=== PATIENT | female | born 1930 | race Caucasian/White ===

== ENCOUNTER 2017-02-09 15:02 | Inpatient (IN) | payer OTHER ==
[~2017-02-09] VITALS: Ht 144.8 cm; Wt 40.8 kg
[2017-02-09 15:02] VITALS: BP_SYST 142
[~2017-02-09 15:02] MED LIST: ALBMDI INH; BUSP5TAB3 PO; CA C-2 PO; DOCU-144 PO; FLUT1DIS3 INH; FOLI400T4 PO; GABA-529 PO; HYDR-3111 PO; LACT10SO66 PO; LEVO500T20 PO; LORA1TAB PO; MIRT45TA5 PO; OMEP20CA10 PO; PRED10TA PO; PRIM50TA31 PO; SENN-153 PO
[2017-02-09] MEDS ORDERED: ASPIRIN 81 MG TAB.CHEW PO ONE (15:30)
[2017-02-09 15:34] LABS: BASOPHILS # (AUTO) 0.5 K/uL (0.0-0.2); BASOPHILS % (AUTO) 3.5 % (0.0-2.0); EOSINOPHILS # (AUTO) 0.1 K/uL (0.0-0.4); EOSINOPHILS % (AUTO) 0.7 % (0.0-4.0); HEMATOCRIT 35.6 % (36-48); HEMOGLOBIN 11.7 g/dL (12.0-16.0); LYMPHOCYTES # (AUTO) 4.6 K/uL (1.0-5.5); LYMPHOCYTES % (AUTO) 34.5 % (20.5-51.5); MEAN CORPUSCULAR HEMOGLOBIN 31 pg (27-31); MEAN CORPUSCULAR HGB CONC 33 % (32-36); MEAN CORPUSCULAR VOLUME 94 fL (79.0-98.0); MONOCYTES # (AUTO) 1.2 K/uL (0.0-1.0); MONOCYTES % (AUTO) 9.4 % (1.7-9.3); NEUTROPHILS # (AUTO) 6.8 K/uL (1.8-7.7); NEUTROPHILS % (AUTO) 51.9 % (40.0-70.0); PLATELET COUNT (AUTO) 309 K/uL (130-430); RED CELL DISTRIBUTION WIDTH 13.3 % (9.0-15.0); WHITE BLOOD COUNT (AUTO) 13.2 K/uL (4.8-10.8)
[2017-02-09 15:56] LABS: CREATININE 0.74 mg/dL (0.55-1.30)
[2017-02-09 16:05] LABS: ANION GAP 4 (5-15); CHLORIDE 104 mmol/L (98-107); GLUCOSE 116 mg/dL (70-99); POTASSIUM 4.5 mmol/L (3.5-5.1); SODIUM SERUM 135 mmol/L (136-145); UREA NITROGEN, BLOOD 21 mg/dL (8-21)
[2017-02-09 16:12] LABS: TOTAL BILIRUBIN 0.3 mg/dL (0.0-1.0)
[2017-02-09 16:13] LABS: ASPARTATE AMINOTRANSFERASE 13 U/L (10-37); TOTAL PROTEIN, SERUM 6.4 g/dL (6.4-8.3)
[2017-02-09 16:24] LABS: ALANINE AMINOTRANSFERASE 6 U/L (12-78)
[2017-02-09] MEDS ORDERED: ALBUTEROL SULFATE 0.083% 2.5 MG/3 ML VIAL.NEB INH PRN (18:00)
[2017-02-09 18:22] VITALS: BP_SYST 129
[2017-02-09 19:45] VITALS: BP_SYST 126
[2017-02-09] MEDS ORDERED: LACTULOSE 20 GM/30 ML UDC PO PRN (21:30)
[2017-02-09] MEDS ORDERED: FLUTICASONE 250 mCg/SALMETEROL 50 mCg DISKUS W.DEV INH SCH (21:30)
[2017-02-09] MEDS ORDERED: ALBUTEROL MDI INHALATION 8 GM INH INH SCH (21:30)
[2017-02-09] MEDS: LORazepam 1 MG TABLET PO PRN (22:15)
[2017-02-09] MEDS: HYDROcodone/ACETAMIN 7.5-325 MG TAB PO PRN (22:15)
[2017-02-10] VITALS (8 sets, daily range): BP systolic 97–126
[2017-02-10] MEDS: LORazepam 1 MG TABLET PO PRN ×2 (08:23→15:15)
[2017-02-10] MEDS: HYDROcodone/ACETAMIN 7.5-325 MG TAB PO PRN (08:32)
[2017-02-10] MEDS ORDERED: busPIRone HCL 5 MG TABLET PO SCH (09:00)
[2017-02-10] MEDS ORDERED: SENNOSIDES 8.6 MG TABLET PO SCH (09:00)
[2017-02-10] MEDS ORDERED: ASPIRIN 81 MG TAB.CHEW PO SCH (09:00)
[2017-02-10] MEDS ORDERED: DOCUSATE SODIUM 100 MG CAPSULE PO SCH (09:00)
[2017-02-10] MEDS ORDERED: OMEPRAZOLE 20 MG CAPSULE.DR (PriLOSEC) PO SCH (09:00)
[2017-02-10] MEDS ORDERED: PREDNISONE 10 MG TABLET PO SCH (09:00)
[2017-02-10] MEDS ORDERED: ENOXAPARIN SODIUM 40 MG/0.4 ML SYRINGE SUBCUT SCH (09:00)
[2017-02-10] MEDS ORDERED: FLUTICASONE/VILANTEROL 1 EACH BLST.W.DEV INH ONE (12:15)
[2017-02-10] MEDS: FLUTICASONE/VILANTEROL 1 EACH BLST.W.DEV INH SCH ×2 (15:16→15:17)
[2017-02-10 17:55] LABS: BILIRUBIN,URINE NEGATIVE (NEGATIVE); BLOOD, URINE NEGATIVE (NEGATIVE); CLARITY/URINE CLEAR (CLEAR); COLOR,URINE YELLOW (YELLOW); GLUCOSE,URINE NEGATIVE (NEGATIVE); KETONES,URINE NEGATIVE (NEGATIVE); LEUKOCYTE ESTERASE ,URINE 1+ (NEGATIVE); NITRITE, URINE NEGATIVE (NEGATIVE); PH,URINE 6.5 (5.0-8.0); PROTEIN URINE NEGATIVE (NEGATIVE); UROBILINOGEN,URINE 0.2 (0.2-1.0)
[2017-02-10] MEDS ORDERED: ASPI-1063 PO (18:09)
[2017-02-10] MEDS ORDERED: NITSL SL (18:10)
[2017-02-10 18:24] LABS: BACTERIA,URINE FEW /HPF (None Seen); RBC,URINE 0-3 /HPF (0-3)
[2017-02-10 18:25] LABS: MUCUS,URINE None Seen /LPF (None Seen)
[2017-02-10] MEDS ORDERED: PRIMIDONE 50 MG TABLET PO SCH (21:00)
[2017-02-10] MEDS ORDERED: MIRTAZAPINE 15 MG TABLET PO SCH (21:00)
[2017-02-10] MEDS ORDERED: GABAPENTIN 100 MG CAPSULE PO SCH (21:00)
== END 2017-02-10 18:40 | disposition home or self-care (01) | DRG 313 ==
LOC: SED 15:02 → STU 17:54
DX: R07.89 Other chest pain (principal); J96.10 Chronic respiratory failure, unspecified whether with hypoxia or hypercapnia; J44.9 Chronic obstructive pulmonary disease, unspecified; M25.512 Pain in left shoulder; N18.9 Chronic kidney disease, unspecified; I12.9 Hypertensive chronic kidney disease with stage 1 through stage 4 chronic kidney disease, or unspecified chronic kidney disease; F41.9 Anxiety disorder, unspecified; Z79.899 Other long term (current) drug therapy; Z88.5 Allergy status to narcotic agent; Z85.118 Personal history of other malignant neoplasm of bronchus and lung; Z82.49 Family history of ischemic heart disease and other diseases of the circulatory system
CPT/HCPCS: 36415; 71010; 80053; 81000-TC; 83880; 84484; 85025; 85379; 87081; 87086; 93005; 93306; 99285; J1650; J7512

== ENCOUNTER 2018-04-03 08:16 | Emergency (ER) | payer OTHER ==
[~2018-04-03] VITALS: Ht 139.7 cm; Wt 38.1 kg
[~2018-04-03 08:16] MED LIST changes: +ALBU8.5H8 INH; +ALEN10TA6 PO; +ASPI-1153 PO; +CARB-61 PO; +DICLOFENAC GEL TP; +DULR10 RC; +ESOM20CA38 PO; +FLUT1AER INH; +GABA-531 PO; +LEVA1.2527 NEB; -LEVO500T20 PO; +LORA-259 PO; +MYCOLOG15 TP; +NITSL SL; +NYAMYC TP; +POLY17PO4 PO; +PRIM50TA27 PO
[2018-04-03 08:17] VITALS: BP_SYST 165
[2018-04-03] MEDS ORDERED: NACL 0.9% 500 ML IV ONE (08:30)
[2018-04-03] MEDS ORDERED: NS 500 ML IV ONE (08:30)
[2018-04-03 09:14] LABS: BILIRUBIN,URINE NEGATIVE (NEGATIVE); BLOOD, URINE NEGATIVE (NEGATIVE); CLARITY/URINE CLEAR (CLEAR); COLOR,URINE YELLOW (YELLOW); GLUCOSE,URINE NEGATIVE (NEGATIVE); KETONES,URINE NEGATIVE (NEGATIVE); LEUKOCYTE ESTERASE ,URINE 1+ (NEGATIVE); NITRITE, URINE NEGATIVE (NEGATIVE); PH,URINE 5.5 (5.0-8.0); PROTEIN URINE NEGATIVE (NEGATIVE); UROBILINOGEN,URINE 0.2 (0.2-1.0)
[2018-04-03 09:19] LABS: BASOPHILS # (AUTO) 0.2 K/uL (0.0-0.2); BASOPHILS % (AUTO) 1.6 % (0.0-2.0); EOSINOPHILS # (AUTO) 0.1 K/uL (0.0-0.4); EOSINOPHILS % (AUTO) 0.7 % (0.0-4.0); HEMATOCRIT 34.3 % (36-48); HEMOGLOBIN 10.9 g/dL (12.0-16.0); LYMPHOCYTES # (AUTO) 2.8 K/uL (1.0-5.5); LYMPHOCYTES % (AUTO) 29.5 % (20.5-51.5); MEAN CORPUSCULAR HEMOGLOBIN 29 pg (27-31); MEAN CORPUSCULAR HGB CONC 32 % (32-36); MEAN CORPUSCULAR VOLUME 92 fL (79.0-98.0); MONOCYTES # (AUTO) 0.5 K/uL (0.0-1.0); MONOCYTES % (AUTO) 5.6 % (1.7-9.3); NEUTROPHILS # (AUTO) 5.9 K/uL (1.8-7.7); NEUTROPHILS % (AUTO) 62.6 % (40.0-70.0); PLATELET COUNT (AUTO) 384 K/uL (130-430); RED BLOOD CELL COUNT(AUTO) 3.74 MIL/uL (4.2-6.2); RED CELL DISTRIBUTION WIDTH 13.6 % (9.0-15.0); WHITE BLOOD COUNT (AUTO) 9.5 K/uL (4.8-10.8)
[2018-04-03 09:24] LABS: BACTERIA,URINE FEW /HPF (None Seen); RBC,URINE 0-3 /HPF (0-3)
[2018-04-03 09:25] LABS: ANION GAP 11 (5-15); CALCIUM 9.1 mg/dL (8.4-11.0); CHLORIDE 102 mmol/L (98-107); CREATININE 0.84 mg/dL (0.55-1.30); GLUCOSE 100 mg/dL (70-99); POTASSIUM 4.2 mmol/L (3.5-5.1); SODIUM SERUM 139 mmol/L (136-145); UREA NITROGEN, BLOOD 17 mg/dL (8-21)
[2018-04-03 09:25] LABS: MUCUS,URINE None Seen /LPF (None Seen)
[2018-04-03 09:29] LABS: ALANINE AMINOTRANSFERASE 12 U/L (12-78); ALBUMIN 3.4 g/dL (3.4-4.8); ASPARTATE AMINOTRANSFERASE 11 U/L (10-37); TOTAL BILIRUBIN 0.2 mg/dL (0.0-1.0)
[2018-04-03] MEDS ORDERED: LEVOFLOXACIN 500 MG/D5W 100 ML IV ONE (10:00)
[2018-04-03] MEDS ORDERED: LORazepam 2 MG/ML VIAL (FOR ER USE) IVP ONE (13:15)
[2018-04-03 14:34] VITALS: BP_SYST 155
== END 2018-04-03 14:34 ==
LOC: SED 08:16
DX: J44.9 Chronic obstructive pulmonary disease, unspecified (principal); N39.0 Urinary tract infection, site not specified; F41.9 Anxiety disorder, unspecified; I50.9 Heart failure, unspecified; Z79.899 Other long term (current) drug therapy; Z88.6 Allergy status to analgesic agent; Z88.5 Allergy status to narcotic agent
CPT/HCPCS: 36415; 36600; 71045; 80053; 81000; 82803; 83605; 84484; 85025; 85610; 85730; 87040; 87086; 93005; 96365; 99285; J1956; J2060; J7040

== ENCOUNTER 2019-09-27 17:08 | Inpatient (IN) | payer OTHER, MEDICAID ==
[~2019-09-27] VITALS: Ht 157.5 cm; Wt 36.8 kg
[2019-09-27 17:08] VITALS: BP_SYST 119
[~2019-09-27 17:08] MED LIST changes: -ALEN10TA6 PO; +ALEN10TA7 PO; -MIRT45TA5 PO; +MIRT45TA83 PO; -OMEP20CA10 PO; +OMEP20CA11 PO
[2019-09-27] MEDS ORDERED: NALOXONE HCL 2 MG/2 ML SYR IVP ONE (17:15)
[2019-09-27] MEDS ORDERED: NS 500 ML IV ONE (17:15)
[2019-09-27 17:33] LABS: HEMATOCRIT 27.9 % (36-48); HEMOGLOBIN 8.9 g/dL (12.0-16.0); MEAN CORPUSCULAR HEMOGLOBIN 28 pg (27-31); MEAN CORPUSCULAR HGB CONC 32 % (32-36); MEAN CORPUSCULAR VOLUME 88 fL (79.0-98.0); PLATELET COUNT (AUTO) 507 K/uL (130-430); RED BLOOD CELL COUNT(AUTO) 3.18 MIL/uL (4.2-6.2); RED CELL DISTRIBUTION WIDTH 15.4 % (9.0-15.0); WHITE BLOOD COUNT (AUTO) 15.4 K/uL (4.8-10.8)
[2019-09-27 18:04] LABS: ATYPICAL LYMPHOCYTES % 0 % (0-0); BAND % (MANUAL) 12 % (0-6); BASOPHILS % (MANUAL) 0 % (0-2); EOSINOPHILS % (MANUAL) 0 % (0-7); LYMPHOCYTES % (MANUAL) 14 % (20-46); MONOCYTES % (MANUAL) 4 % (0-11)
[2019-09-27] MEDS ORDERED: ESOM40CA53 PO (18:16)
[2019-09-27] MEDS ORDERED: CARB-61 PO (18:16)
[2019-09-27] MEDS ORDERED: METR55GE2 TP (18:16)
[2019-09-27] MEDS ORDERED: diclofenac gel TP (18:16)
[2019-09-27] MEDS ORDERED: TRIA15CR3 TP (18:16)
[2019-09-27] MEDS ORDERED: IPRA4AER INH (18:16)
[2019-09-27] MEDS ORDERED: LACT10SO6 PO (18:16)
[2019-09-27] MEDS ORDERED: METH750T3 PO (18:16)
[2019-09-27] MEDS ORDERED: LEVO50TA8 PO (18:16)
[2019-09-27] MEDS ORDERED: SENN8.6T19 PO (18:16)
[2019-09-27] MEDS ORDERED: ketoconazole shampoo TP (18:16)
[2019-09-27] MEDS ORDERED: KETO60CR2 TP (18:16)
[2019-09-27] MEDS ORDERED: NACL30SP2 NS (18:16)
[2019-09-27] MEDS ORDERED: ALBU8.5H8 INH (18:16)
[2019-09-27 18:30] LABS: ANION GAP 7 (5-15); CHLORIDE 104 mmol/L (98-107); CREATININE 0.66 mg/dL (0.55-1.30); GLUCOSE 116 mg/dL (70-99); POTASSIUM 3.3 mmol/L (3.5-5.1); SODIUM SERUM 140 mmol/L (136-145); UREA NITROGEN, BLOOD 26 mg/dL (8-21)
[2019-09-27 18:44] LABS: ALANINE AMINOTRANSFERASE 9 U/L (12-78); ALBUMIN 1.5 g/dL (3.4-4.8); ASPARTATE AMINOTRANSFERASE 29 U/L (10-37); TOTAL BILIRUBIN 0.2 mg/dL (0.0-1.0)
[2019-09-27 18:47] LABS: ACETAMINOPHEN < 1 ug/mL (1-30); ALCOHOL, BLOOD < 3 mg/dL (<10)
[2019-09-27 18:54] LABS: INR 1.1 (0.8-1.2); PROTHROMBIN TIME 11.1 SECS (9.5-12.5)
[2019-09-27 19:17] LABS: BILIRUBIN,URINE 2+ (NEGATIVE); BLOOD, URINE 2+ (NEGATIVE); CLARITY/URINE CLOUDY (CLEAR); COLOR,URINE YELLOW (YELLOW); GLUCOSE,URINE NEGATIVE (NEGATIVE); KETONES,URINE 1+ (NEGATIVE); LEUKOCYTE ESTERASE ,URINE 1+ (NEGATIVE); NITRITE, URINE NEGATIVE (NEGATIVE); PROTEIN URINE 1+ (NEGATIVE)
[2019-09-27 19:28] LABS: BACTERIA,URINE FEW /HPF (None Seen); MUCUS,URINE 3+ /LPF (None Seen); WBC,URINE 20-50 /HPF (0-3)
[2019-09-27 19:30] LABS: BARBITURATE, URINE POSITIVE (NEG <=200); BENZODIAZEPINE, URINE POSITIVE (NEG <=150); CANNABINOID, URINE NEGATIVE (NEG <=50); COCAINE, URINE NEGATIVE (NEG <=150); METHAMPHETAMINES SCREEN,URINE NEGATIVE (NEG <=500); OPIATE, URINE POSITIVE (NEG <=100); PHENCYCLIDINE SCREEN,URINE NEGATIVE (NEG <=25); UR TRICYCLIC ANTIDEPRESSANTS NEGATIVE (NEG <=300); URINE AMPHETAMINE NEGATIVE (NEG <=500); URINE METHADONE NEGATIVE (NEG <=200); URINE OXYCODONE SCREEN NEGATIVE (NEG <=100); URINE PROPOXYPHENE SCREEN NEGATIVE (NEG <=300)
[2019-09-27 19:59] LABS: ACETONE, SERUM NEGATIVE (NEGATIVE)
[2019-09-27 20:36] VITALS: BP_SYST 135
[2019-09-27] MEDS ORDERED: ACETAMINOPHEN 325 MG TABLET PO PRN (21:30)
[2019-09-27] MEDS ORDERED: ONDANSETRON HCL 4 MG/2 ML VIAL IVP PRN (21:30)
[2019-09-27] MEDS ORDERED: ALBUTEROL SULFATE 0.083% 2.5 MG/3 ML VIAL.NEB INH PRN (21:30)
[2019-09-27] MEDS: AZITHROMYCIN 500 MG in NS 250 ML IV SCH (22:05)
[2019-09-27] MEDS: NACL 0.9% 1,000 ML IV SCH (22:06)
[2019-09-27] MEDS ORDERED: PIPERACILLIN/TAZOBACTAM 3.375 GM/VIAL (ZOSYN) IV ONE (22:18)
[2019-09-27] MEDS ORDERED: AZITHROMYCIN 500 MG/VIAL (ZITHROMAX) IV ONE (22:18)
[2019-09-27] MEDS: PIPERACILLIN/TAZO 3.375/DEX-IS 50 ML IV SCH (22:55)
[2019-09-27 23:50] VITALS: BP_SYST 142
[2019-09-28 01:28] VITALS: BP_SYST 109
[2019-09-28] MEDS: PIPERACILLIN/TAZO 3.375/DEX-IS 50 ML IV SCH ×4 (03:27→21:49)
[2019-09-28 06:35] LABS: ALANINE AMINOTRANSFERASE 18 U/L (12-78); ALBUMIN 1.3 g/dL (3.4-4.8); ANION GAP 9 (5-15); ASPARTATE AMINOTRANSFERASE 21 U/L (10-37); CALCIUM 7.2 mg/dL (8.4-11.0); CHLORIDE 107 mmol/L (98-107); CREATININE 0.48 mg/dL (0.55-1.30); GLUCOSE 122 mg/dL (70-99); SODIUM SERUM 143 mmol/L (136-145); TOTAL BILIRUBIN 0.3 mg/dL (0.0-1.0); UREA NITROGEN, BLOOD 22 mg/dL (8-21)
[2019-09-28 07:16] LABS: BASOPHILS # (AUTO) 0.1 K/uL (0.0-0.2); BASOPHILS % (AUTO) 0.5 % (0.0-2.0); HEMATOCRIT 23.7 % (36-48); HEMOGLOBIN 7.6 g/dL (12.0-16.0); LYMPHOCYTES # (AUTO) 0.9 K/uL (1.0-5.5); LYMPHOCYTES % (AUTO) 6.5 % (20.5-51.5); MEAN CORPUSCULAR HEMOGLOBIN 28 pg (27-31); MEAN CORPUSCULAR HGB CONC 32 % (32-36); MEAN CORPUSCULAR VOLUME 89 fL (79.0-98.0); MONOCYTES # (AUTO) 0.6 K/uL (0.0-1.0); MONOCYTES % (AUTO) 4.3 % (1.7-9.3); NEUTROPHILS # (AUTO) 12.7 K/uL (1.8-7.7); PLATELET COUNT (AUTO) 450 K/uL (130-430); RED BLOOD CELL COUNT(AUTO) 2.68 MIL/uL (4.2-6.2); RED CELL DISTRIBUTION WIDTH 15.3 % (9.0-15.0); WHITE BLOOD COUNT (AUTO) 14.3 K/uL (4.8-10.8)
[2019-09-28] MEDS: NACL 0.9% 1,000 ML IV SCH (07:26)
[2019-09-28 07:47] LABS: NEUTROPHILS % (AUTO) 88.7 % (40.0-70.0)
[2019-09-28 08:00] VITALS: BP_SYST 107
[2019-09-28] MEDS: CARBIDOPA/LEVODOPA 25/100 MG TABLET PO SCH ×4 (08:55→21:00)
[2019-09-28] MEDS: LEVOTHYROXINE SODIUM 0.05 MG TABLET PO SCH (08:56)
[2019-09-28] MEDS ORDERED: FLUTICASONE/VILANTEROL 1 EACH BLST.W.DEV INH SCH (09:00)
[2019-09-28] MEDS ORDERED: BUDESONIDE 0.5 MG/2 ML AMPUL.NEB INH ONE (09:15)
[2019-09-28] MEDS ORDERED: ALBUTEROL SULFATE 0.083% 2.5 MG/3 ML VIAL.NEB INH ONE (09:15)
[2019-09-28] MEDS ORDERED: POTASSIUM CHLORIDE 40 MEQ in NS 250 ML IV ONE (09:30)
[2019-09-28 12:38] VITALS: BP_SYST 113
[2019-09-28 17:04] VITALS: BP_SYST 119
[2019-09-28] MEDS: D5NS 1,000 ML IV SCH (17:06)
[2019-09-28] MEDS: ALBUTEROL SULFATE 0.083% 2.5 MG/3 ML VIAL.NEB INH SCH (19:30)
[2019-09-28] MEDS: BUDESONIDE 0.5 MG/2 ML AMPUL.NEB INH SCH (19:31)
[2019-09-28 20:00] VITALS: BP_SYST 128
[2019-09-28] MEDS: AZITHROMYCIN 500 MG in NS 250 ML IV SCH (22:25)
[2019-09-29 00:11] VITALS: BP_SYST 119
[2019-09-29] MEDS: ALBUTEROL SULFATE 0.083% 2.5 MG/3 ML VIAL.NEB INH SCH ×4 (01:26→20:33)
[2019-09-29] MEDS: PIPERACILLIN/TAZO 3.375/DEX-IS 50 ML IV SCH ×4 (04:27→21:50)
[2019-09-29 06:51] LABS: BASOPHILS # (AUTO) 0.1 K/uL (0.0-0.2); BASOPHILS % (AUTO) 0.5 % (0.0-2.0); HEMATOCRIT 23.2 % (36-48); HEMOGLOBIN 7.3 g/dL (12.0-16.0); LYMPHOCYTES # (AUTO) 1.5 K/uL (1.0-5.5); LYMPHOCYTES % (AUTO) 12.1 % (20.5-51.5); MEAN CORPUSCULAR HEMOGLOBIN 28 pg (27-31); MEAN CORPUSCULAR HGB CONC 32 % (32-36); MEAN CORPUSCULAR VOLUME 88 fL (79.0-98.0); MONOCYTES # (AUTO) 0.7 K/uL (0.0-1.0); MONOCYTES % (AUTO) 5.9 % (1.7-9.3); NEUTROPHILS # (AUTO) 10.4 K/uL (1.8-7.7); NEUTROPHILS % (AUTO) 81.5 % (40.0-70.0); PLATELET COUNT (AUTO) 411 K/uL (130-430); RED BLOOD CELL COUNT(AUTO) 2.63 MIL/uL (4.2-6.2); RED CELL DISTRIBUTION WIDTH 15.3 % (9.0-15.0); WHITE BLOOD COUNT (AUTO) 12.7 K/uL (4.8-10.8)
[2019-09-29 07:12] LABS: ALANINE AMINOTRANSFERASE 20 U/L (12-78); ALBUMIN 1.2 g/dL (3.4-4.8); ANION GAP 8 (5-15); ASPARTATE AMINOTRANSFERASE 16 U/L (10-37); CHLORIDE 112 mmol/L (98-107); CREATININE 0.48 mg/dL (0.55-1.30); GLUCOSE 110 mg/dL (70-99); POTASSIUM 3.3 mmol/L (3.5-5.1); SODIUM SERUM 146 mmol/L (136-145); TOTAL BILIRUBIN 0.3 mg/dL (0.0-1.0); UREA NITROGEN, BLOOD 13 mg/dL (8-21)
[2019-09-29] MEDS: BUDESONIDE 0.5 MG/2 ML AMPUL.NEB INH SCH ×2 (07:34→20:42)
[2019-09-29] MEDS: CARBIDOPA/LEVODOPA 25/100 MG TABLET PO SCH ×4 (09:00→21:00)
[2019-09-29] MEDS: LEVOTHYROXINE SODIUM 0.05 MG TABLET PO SCH (09:00)
[2019-09-29] MEDS: D5NS 1,000 ML IV SCH ×2 (10:43→21:54)
[2019-09-29 12:40] VITALS: BP_SYST 106
[2019-09-29 16:51] VITALS: BP_SYST 130
[2019-09-29 19:35] VITALS: BP_SYST 125
[2019-09-29] MEDS: AZITHROMYCIN 500 MG in NS 250 ML IV SCH (22:35)
[2019-09-30 00:04] VITALS: BP_SYST 117
[2019-09-30] MEDS: ALBUTEROL SULFATE 0.083% 2.5 MG/3 ML VIAL.NEB INH SCH ×4 (01:00→20:02)
[2019-09-30] MEDS: PIPERACILLIN/TAZO 3.375/DEX-IS 50 ML IV SCH ×4 (03:25→22:18)
[2019-09-30 07:53] VITALS: BP_SYST 133
[2019-09-30] MEDS: BUDESONIDE 0.5 MG/2 ML AMPUL.NEB INH SCH ×2 (07:54→20:11)
[2019-09-30] MEDS: CARBIDOPA/LEVODOPA 25/100 MG TABLET PO SCH ×4 (09:00→21:00)
[2019-09-30] MEDS: LEVOTHYROXINE SODIUM 0.05 MG TABLET PO SCH (09:00)
[2019-09-30 12:25] VITALS: BP_SYST 100
[2019-09-30 16:30] VITALS: BP_SYST 103
[2019-09-30] MEDS: D5NS 1,000 ML IV SCH (16:46)
[2019-09-30 20:00] VITALS: BP_SYST 124
[2019-09-30] MEDS: AZITHROMYCIN 500 MG in NS 250 ML IV SCH (22:57)
[2019-10-01 00:22] VITALS: BP_SYST 102
[2019-10-01] MEDS: ALBUTEROL SULFATE 0.083% 2.5 MG/3 ML VIAL.NEB INH SCH ×4 (01:00→19:45)
[2019-10-01] MEDS: PIPERACILLIN/TAZO 3.375/DEX-IS 50 ML IV SCH ×4 (04:13→20:41)
[2019-10-01 06:33] LABS: ALANINE AMINOTRANSFERASE 18 U/L (12-78); ALBUMIN 1.1 g/dL (3.4-4.8); ANION GAP 8 (5-15); ASPARTATE AMINOTRANSFERASE 19 U/L (10-37); CHLORIDE 102 mmol/L (98-107); CREATININE 0.44 mg/dL (0.55-1.30); GLUCOSE 124 mg/dL (70-99); SODIUM SERUM 138 mmol/L (136-145); TOTAL BILIRUBIN 0.2 mg/dL (0.0-1.0); UREA NITROGEN, BLOOD 7 mg/dL (8-21)
[2019-10-01 06:41] LABS: POTASSIUM 1.6 mmol/L (3.5-5.1)
[2019-10-01 06:43] LABS: CALCIUM 6.4 mg/dL (8.4-11.0)
[2019-10-01 06:53] LABS: HEMATOCRIT 22.9 % (36-48); MEAN CORPUSCULAR HEMOGLOBIN 28 pg (27-31); MEAN CORPUSCULAR HGB CONC 32 % (32-36); MEAN CORPUSCULAR VOLUME 88 fL (79.0-98.0); PLATELET COUNT (AUTO) 317 K/uL (130-430); RED BLOOD CELL COUNT(AUTO) 2.61 MIL/uL (4.2-6.2); RED CELL DISTRIBUTION WIDTH 15.6 % (9.0-15.0); WHITE BLOOD COUNT (AUTO) 13.9 K/uL (4.8-10.8)
[2019-10-01] MEDS: BUDESONIDE 0.5 MG/2 ML AMPUL.NEB INH SCH ×2 (07:25→19:56)
[2019-10-01] MEDS ORDERED: POTASSIUM CHLORIDE 40 MEQ, LIDOCAINE JECT 2% PF 100 MG 50 MG in NS 250 ML IV ONE ×3 (07:30→16:00)
[2019-10-01 07:42] LABS: HEMOGLOBIN 7.3 g/dL (12.0-16.0)
[2019-10-01 07:49] VITALS: BP_SYST 126
[2019-10-01] MEDS: LEVOTHYROXINE SODIUM 0.05 MG TABLET PO SCH (09:00)
[2019-10-01] MEDS: CARBIDOPA/LEVODOPA 25/100 MG TABLET PO SCH ×4 (09:00→20:46)
[2019-10-01 10:12] LABS: ATYPICAL LYMPHOCYTES % 2 % (0-0); BAND % (MANUAL) 3 % (0-6); BASOPHILS % (MANUAL) 0 % (0-2); EOSINOPHILS % (MANUAL) 0 % (0-7); LYMPHOCYTES % (MANUAL) 9 % (20-46); MONOCYTES % (MANUAL) 2 % (0-11)
[2019-10-01 12:19] VITALS: BP_SYST 111
[2019-10-01 14:03] LABS: POTASSIUM 2.4 mmol/L (3.5-5.1)
[2019-10-01 14:04] LABS: CALCIUM 6.5 mg/dL (8.4-11.0)
[2019-10-01] MEDS ORDERED: CALCIUM CHLORIDE 1 GM in NS 100 ML IV ONE (14:15)
[2019-10-01] MEDS ORDERED: MAGNESIUM SULFATE 50 ML IV ONE (14:15)
[2019-10-01] MEDS: D5NS 1,000 ML IV SCH (15:38)
[2019-10-01 16:30] VITALS: BP_SYST 126
[2019-10-01 20:00] VITALS: BP_SYST 130
[2019-10-01] MEDS: AZITHROMYCIN 500 MG in NS 250 ML IV SCH (21:30)
[2019-10-01 23:24] VITALS: BP_SYST 113
[2019-10-02] MEDS: ALBUTEROL SULFATE 0.083% 2.5 MG/3 ML VIAL.NEB INH SCH ×4 (01:10→19:47)
[2019-10-02] MEDS: PIPERACILLIN/TAZO 3.375/DEX-IS 50 ML IV SCH ×4 (03:26→21:10)
[2019-10-02] MEDS: D5NS 1,000 ML IV SCH ×2 (04:05→18:24)
[2019-10-02 06:56] LABS: BASOPHILS % (AUTO) 0.2 % (0.0-2.0); HEMATOCRIT 23.8 % (36-48); HEMOGLOBIN 7.4 g/dL (12.0-16.0); LYMPHOCYTES # (AUTO) 1.2 K/uL (1.0-5.5); LYMPHOCYTES % (AUTO) 10.7 % (20.5-51.5); MEAN CORPUSCULAR HEMOGLOBIN 27 pg (27-31); MEAN CORPUSCULAR HGB CONC 31 % (32-36); MEAN CORPUSCULAR VOLUME 88 fL (79.0-98.0); MONOCYTES # (AUTO) 0.4 K/uL (0.0-1.0); MONOCYTES % (AUTO) 3.8 % (1.7-9.3); NEUTROPHILS # (AUTO) 9.8 K/uL (1.8-7.7); NEUTROPHILS % (AUTO) 85.3 % (40.0-70.0); PLATELET COUNT (AUTO) 295 K/uL (130-430); RED BLOOD CELL COUNT(AUTO) 2.71 MIL/uL (4.2-6.2); RED CELL DISTRIBUTION WIDTH 15.6 % (9.0-15.0); WHITE BLOOD COUNT (AUTO) 11.5 K/uL (4.8-10.8)
[2019-10-02] MEDS: BUDESONIDE 0.5 MG/2 ML AMPUL.NEB INH SCH ×2 (07:39→19:47)
[2019-10-02 07:52] LABS: ALANINE AMINOTRANSFERASE 17 U/L (12-78); ALBUMIN 1.2 g/dL (3.4-4.8); ANION GAP 7 (5-15); ASPARTATE AMINOTRANSFERASE 16 U/L (10-37); CALCIUM 7.4 mg/dL (8.4-11.0); CHLORIDE 108 mmol/L (98-107); CREATININE 0.48 mg/dL (0.55-1.30); GLUCOSE 106 mg/dL (70-99); SODIUM SERUM 142 mmol/L (136-145); TOTAL BILIRUBIN 0.3 mg/dL (0.0-1.0); UREA NITROGEN, BLOOD 7 mg/dL (8-21)
[2019-10-02] MEDS: LEVOTHYROXINE SODIUM 0.05 MG TABLET PO SCH (08:03)
[2019-10-02] MEDS: CARBIDOPA/LEVODOPA 25/100 MG TABLET PO SCH ×4 (08:03→21:00)
[2019-10-02 08:11] VITALS: BP_SYST 139
[2019-10-02 08:15] LABS: POTASSIUM 2.3 mmol/L (3.5-5.1)
[2019-10-02] MEDS ORDERED: POTASSIUM CHLORIDE 60 MEQ in NS 500 ML IV ONE (08:45)
[2019-10-02 13:19] VITALS: BP_SYST 105
[2019-10-02 17:05] VITALS: BP_SYST 115
[2019-10-02 20:00] VITALS: BP_SYST 128
[2019-10-03] VITALS (8 sets, daily range): BP systolic 113–154
[2019-10-03] MEDS: PIPERACILLIN/TAZO 3.375/DEX-IS 50 ML IV SCH ×4 (04:28→21:48)
[2019-10-03 06:26] LABS: ALANINE AMINOTRANSFERASE 17 U/L (12-78); ALBUMIN 1.2 g/dL (3.4-4.8); ANION GAP 9 (5-15); ASPARTATE AMINOTRANSFERASE 14 U/L (10-37); CHLORIDE 111 mmol/L (98-107); CREATININE 0.41 mg/dL (0.55-1.30); GLUCOSE 118 mg/dL (70-99); SODIUM SERUM 145 mmol/L (136-145); TOTAL BILIRUBIN 0.2 mg/dL (0.0-1.0); UREA NITROGEN, BLOOD 7 mg/dL (8-21)
[2019-10-03 06:33] LABS: POTASSIUM 2.8 mmol/L (3.5-5.1)
[2019-10-03] MEDS ORDERED: KCL 40 mEq in 100 mL (PREMIX) 100 ML IV ONE (06:45)
[2019-10-03] MEDS ORDERED: POTASSIUM CHLORIDE 40 MEQ in NS 250 ML IV ONE (07:00)
[2019-10-03 07:03] LABS: BASOPHILS % (AUTO) 0.2 % (0.0-2.0); HEMATOCRIT 23.8 % (36-48); HEMOGLOBIN 7.4 g/dL (12.0-16.0); LYMPHOCYTES # (AUTO) 1.2 K/uL (1.0-5.5); MEAN CORPUSCULAR HEMOGLOBIN 28 pg (27-31); MEAN CORPUSCULAR HGB CONC 31 % (32-36); MEAN CORPUSCULAR VOLUME 88 fL (79.0-98.0); MONOCYTES # (AUTO) 0.4 K/uL (0.0-1.0); MONOCYTES % (AUTO) 3.4 % (1.7-9.3); NEUTROPHILS # (AUTO) 9.5 K/uL (1.8-7.7); NEUTROPHILS % (AUTO) 85.4 % (40.0-70.0); PLATELET COUNT (AUTO) 286 K/uL (130-430); RED BLOOD CELL COUNT(AUTO) 2.69 MIL/uL (4.2-6.2); RED CELL DISTRIBUTION WIDTH 15.6 % (9.0-15.0); WHITE BLOOD COUNT (AUTO) 11.2 K/uL (4.8-10.8)
[2019-10-03] MEDS: ALBUTEROL SULFATE 0.083% 2.5 MG/3 ML VIAL.NEB INH SCH ×3 (07:19→19:20)
[2019-10-03] MEDS: BUDESONIDE 0.5 MG/2 ML AMPUL.NEB INH SCH ×2 (07:19→19:35)
[2019-10-03] MEDS: CARBIDOPA/LEVODOPA 25/100 MG TABLET PO SCH ×4 (08:38→21:47)
[2019-10-03] MEDS: LEVOTHYROXINE SODIUM 0.05 MG TABLET PO SCH (08:38)
[2019-10-03 13:41] LABS: POTASSIUM 4.2 mmol/L (3.5-5.1)
[2019-10-03] MEDS: D5NS 1,000 ML IV SCH (17:46)
[2019-10-04] MEDS: ALBUTEROL SULFATE 0.083% 2.5 MG/3 ML VIAL.NEB INH SCH ×2 (01:03→07:20)
[2019-10-04] MEDS: PIPERACILLIN/TAZO 3.375/DEX-IS 50 ML IV SCH (03:27)
[2019-10-04] MEDS: D5NS 1,000 ML IV SCH (05:29)
[2019-10-04] MEDS: BUDESONIDE 0.5 MG/2 ML AMPUL.NEB INH SCH (07:20)
[2019-10-04] MEDS: LEVOTHYROXINE SODIUM 0.05 MG TABLET PO SCH (08:46)
[2019-10-04] MEDS: CARBIDOPA/LEVODOPA 25/100 MG TABLET PO SCH (08:46)
[2019-10-04 09:15] LABS: ANION GAP 9 (5-15); CREATININE 0.56 mg/dL (0.55-1.30)
[2019-10-04 09:58] LABS: SODIUM SERUM 147 mmol/L (136-145)
[2019-10-04 09:59] LABS: CHLORIDE 113 mmol/L (98-107)
[2019-10-04 10:00] LABS: CALCIUM 7.3 mg/dL (8.4-11.0); GLUCOSE 124 mg/dL (70-99); UREA NITROGEN, BLOOD 7 mg/dL (8-21)
[2019-10-04] MEDS ORDERED: POTASSIUM CHLORIDE 20 MEQ TAB.PRT.SR PO SCH (10:15)
[2019-10-04] MEDS ORDERED: D5/0.45 NS 1,000 ML IV SCH (10:15)
[2019-10-04 12:00] VITALS: BP_SYST 114
[2019-10-04 13:03] VITALS: BP_SYST 115
[2019-10-04] MEDS ORDERED: PIPERACILLIN/TAZO 2.25G/DEX-IS 50 ML IV SCH (16:00)
== END 2019-10-04 13:50 | DRG 871 ==
LOC: SED 17:08 → STU 19:21 → SMU 09-28 10:05 → STU 10-01 07:30
PROVIDERS: ADMIT Internal Medicine Hospice and Palliative Medicine; ATTEND Internal Medicine Hospice and Palliative Medicine
DX: A41.9 Sepsis, unspecified organism (principal); J69.0 Pneumonitis due to inhalation of food and vomit; E43 Unspecified severe protein-calorie malnutrition; J96.01 Acute respiratory failure with hypoxia; G92 Toxic encephalopathy; N39.0 Urinary tract infection, site not specified; I13.0 Hypertensive heart and chronic kidney disease with heart failure and stage 1 through stage 4 chronic kidney disease, or unspecified chronic kidney disease; Z68.1 Body mass index [BMI] 19.9 or less, adult; F41.9 Anxiety disorder, unspecified; J43.9 Emphysema, unspecified; F03.90 Unspecified dementia, unspecified severity, without behavioral disturbance, psychotic disturbance, mood disturbance, and anxiety; D63.8 Anemia in other chronic diseases classified elsewhere; I50.9 Heart failure, unspecified; G62.9 Polyneuropathy, unspecified; N18.9 Chronic kidney disease, unspecified; R65.20 Severe sepsis without septic shock; R13.10 Dysphagia, unspecified; E87.6 Hypokalemia; T42.4X5A Adverse effect of benzodiazepines, initial encounter; T40.2X5A Adverse effect of other opioids, initial encounter; E83.51 Hypocalcemia; E03.9 Hypothyroidism, unspecified; Z79.899 Other long term (current) drug therapy; Z88.1 Allergy status to other antibiotic agents; Z88.8 Allergy status to other drugs, medicaments and biological substances; Z88.6 Allergy status to analgesic agent; Z88.5 Allergy status to narcotic agent; Y92.89 Other specified places as the place of occurrence of the external cause
CPT/HCPCS: 36415; 70450-TC; 71045; 71250-TC; 80048; 80053; 80307; 81000-TC; 82009-TC; 82140-TC; 82310-TC; 82550-TC; 83605; 83735-TC; 83880; 84132-TC; 84484; 85007; 85025; 85027; 85610-TC; 85730-TC; 87040-TC; 87086; 92610-GN; 93005; 93306; 94640; 94760; 96374; 97110-GP; 97530-GP; 99285; G0378; G0480; G0481; G0482; J0456; J2310; J2543; J3475; J3480; J7030; J7040; J7042; J7050; J7060; J7613; J7626